=== PATIENT | male | born 1955 | race Hispanic/Latino ===

== ENCOUNTER 2018-01-10 10:36 | Emergency (ER) | payer OTHER ==
[2018-01-10 10:42] VITALS: BMI 27.0
[2018-01-10 10:53] VITALS: RESP 18; TEMP 97.5
--- NOTE | 2018-01-10 11:13 | ED PDOC ---
Arrival/HPI - General Chief Complaint: Rib Injury Historian: Patient - History of Present Illness Narrative History of Present Illness (Text): 01/10/18 11:06 62yo male with pmhx of hypertension bib EMS for complaint of b/l rib pain that started this morning. States pain started when he turned to drop a water jug into a dispenser this morning. States pain is with deep inspiration. Denies chest pain, SOB, cough, fever, any other complaint. Past Medical History - Provider Review Nursing Documentation Reviewed: Yes - Past History Past History: No Previous - Infectious Disease Hx of Infectious Diseases: None - Cardiac Other/Comment: chronic low potassium level -- gets leg cramps - Psychiatric Hx Substance Use: No - Surgical History Hx Musculoskeletal Surgery: Yes (right arm surgery) - Anesthesia Hx Anesthesia: Yes Hx Anesthesia Reactions: No Hx Malignant Hyperthermia: No Family/Social History - Physician Review Nursing Documentation Reviewed: Yes Family/Social History: Unknown Family HX Smoking Status: Never Smoked Hx Alcohol Use: No Hx Substance Use: No Allergies/Home Meds Allergies/Adverse Reactions: Allergies No Known Allergies Allergy (Verified 10/07/15 18:08) Review of Systems - Physician Review All systems were reviewed & negative as marked: Yes - Review of Systems Constitutional: Normal Eyes: Normal ENT: Normal Respiratory: Normal Cardiovascular: Normal Gastrointestinal: Normal Genitourinary Male: Normal Musculoskeletal: Arthralgias (B/L rib pain) Skin: Normal Neurological: Normal Endocrine: Normal Hemo/Lymphatic: Normal Psychiatric: Normal Physical Exam Vital Signs Reviewed: Yes Vital Signs Temp Pulse Resp BP Pulse Ox 01/10/18 10:53 97.5 F L 76 18 167/82 H 100 Temperature: Afebrile Blood Pressure: Normal Pulse: Regular Respiratory Rate: Normal Appearance: Positive for: Well-Appearing, Non-Toxic, Comfortable Pain Distress: None Mental Status: Positive for: Alert and Oriented X 3 - Systems Exam Head: Present: Atraumatic, Normocephalic Pupils: Present: PERRL Extroacular Muscles: Present: EOMI Conjunctiva: Present: Normal Mouth: Present: Moist Mucous Membranes Neck: Present: Normal Range of Motion Respiratory/Chest: Present: Clear to Auscultation, Good Air Exchange, Tender to Palpation (B/L rib worse over the lateral left rib). No: Respiratory Distress, Accessory Muscle Use, Wheezes, Decreased Breath Sounds, Rales, Retracting, Rhonchi, Tachypneic Cardiovascular: Present: Regular Rate and Rhythm, Normal S1, S2. No: Murmurs Abdomen: No: Tenderness, Distention, Peritoneal Signs Back: Present: Normal Inspection Upper Extremity: Present: Normal Inspection. No: Cyanosis, Edema Lower Extremity: Present: Normal Inspection. No: Edema Neurological: Present: GCS=15, CN II-XII Intact, Speech Normal Skin: Present: Warm, Dry, Normal Color. No: Rashes Psychiatric: Present: Alert, Oriented x 3, Normal Insight, Normal Concentration Medical Decision Making ED Course and Treatment: 01/10/18 12:16 Pt in ED for stated history. He was comfortable in ED. Had focal tenderness on palpation of left rib. His pain was controlled in ED with medication. B/L rib/PA chest xray IMPRESSION: Unremarkable radiographs of the chest and bilateral ribs. No rib fracture. Result was DW the pt. He was DC home with Naprosyn. referred to his PMD - RAD Interpretation Radiology Orders: 01/10/18 10:57 RIBS BILATERAL W/PA CHEST [RAD] Stat Disposition/Present on Arrival - Present on Arrival Any Indicators Present on Arrival: No History of DVT/PE: No History of Uncontrolled Diabetes: No Urinary Catheter: No History of Decub. Ulcer: No History Surgical Site Infection Following: None - Disposition Have Diagnosis and Disposition been Completed?: Yes Diagnosis: Rib sprain Disposition: HOME/ ROUTINE Disposition Time: 12:00 Patient Plan: Discharge Patient Problems: Current Active Problems Problem Status Onset Rib sprain Acute Condition: STABLE Discharge Instructions (ExitCare): Bruised Rib Additional Instructions: Follow up with your Doctor Return to ED for any worsening or new symptoms Prescriptions: Naproxen [Naprosyn] 500 mg PO BID #20 tablet Referrals: Brionna Omalley MD [Medical Doctor] - Follow up with primary Forms: [employer] ([place])
--- NOTE | 2018-01-10 11:50 | RAD ---
Date of service: 01/10/2018 PROCEDURE: Radiographs of the chest and bilateral ribs HISTORY: Rib Pain. No history of recent/ related trauma provided COMPARISON: None available. TECHNIQUE: Frontal radiograph of the chest and multiple oblique radiographs of the bilateral ribs were obtained. FINDINGS: RIGHT RIBS: No fracture or focal lesion visualized. LEFT RIBS: No fracture or focal lesion visualized. LUNGS: Clear. PLEURA: No pneumothorax or pleural fluid. CARDIOVASCULAR: Normal cardiac size. No pulmonary vascular congestion. No aortic atherosclerotic calcification present OTHER FINDINGS: Dilated stomach with air-fluid level. IMPRESSION: Unremarkable radiographs of the chest and bilateral ribs. No rib fracture.
[2018-01-10 12:59] VITALS: BP 142/78; PULSE 78; O2SAT 99
== END 2018-01-10 12:58 | disposition home or self-care (01) ==
LOC: ED 10:36
DX: S23.41XA Sprain of ribs, initial encounter (principal); X50.0XXA Overexertion from strenuous movement or load, initial encounter; Y92.89 Other specified places as the place of occurrence of the external cause